=== PATIENT | male | born 1990 | race Caucasian/White ===

== ENCOUNTER 2025-07-08 11:08 | Outpatient (AMB) | payer MEDICAID, SELFPAY ==
--- OUTSIDE RECORDS SUMMARY | 2023-01-04 14:53 | XMS_ITS | Encounter Summary ---
Author Organization [facility] Address [address] [place] [id number] Phone Care Team Providers Care Medication Aide Name Role Phone Evie Enamorado NP Primary Care Provider [phone] Encounter Details Date Type Department Care Team (Late st Contact Info) Description 01/04/2023 3:53 PM EDT Hospital Encounter [facility] [address] [place] [address] Reyna Leigh FNP [address] [place] [id number] [email or web address] Social History Tobacco Use Types Packs/Day Years Used Date Smoking Tobacco: Every Day Cigarettes Smokeless Tobacco: Never Alcohol Use Standard Drinks/Week Comments Never 0 (1 standard drink = 0.6 oz pur e alcohol) Education Answer Date Recorded Are you interested in more education? Not on omar e 12/29/2022 Are you concerned about learning? Not on file 12/29/2022 No 12/29/2022 No 12/29/2022 Digital Access Answer Date Recorded No 01/29/2023 No 01/29/2023 Reliable internet access at home? Not on file 01/29/2023 Device with a working camera? Not on file Sex and Gender Information Value Date Recorded Sex Assigned at Not on file Legal Sex Male 12:18 PM EST Gender Identity Not on file Sexual Orientation Not on file documented as of this encounter Plan of Treatment Not on file documented as of this encounter Procedures Procedure Name Priority Date/Time Associated Diagnosis Comments XR FINGER 2 OR MORE VIEWS (RIGHT) Urgent/patient waiting 01/04/2023 3:56 PM EDT Contusion of right index finger with damage to nail, initial encounter documented in this encounter Results * XR FINGER 2 OR MORE VIEWS (RIGHT) (01/04/2023 3:56 PM EDT) Anatomical Region Laterality Modality Hand Right Computed Radiogr aphy 01/04/2023 4:01 PM EDT Impressions 01/04/2023 4:02 PM EDT No fracture or dislocation. Narrative 01/04/2023 4:02 PM EDT XR FINGER 2 OR MORE VIEWS (RIGHT) COMPARISON: None FINDINGS: No fracture. Normal alignment. Normal joint spaces. No radiodense foreign body. Procedure Note Jovana Gabriel MD - 01/04/2023 XR FINGER 2 OR MORE VIEWS (RIGHT) COMPARISON: None FINDINGS: No fracture. Normal alignment. Normal joint spaces. No radiodense foreignbody. IMPRESSION: No fracture or dislocation. Reyna Leigh MUSIC WRITER IMG XR UPPER EXTREMITY Tiffany l Result documented in this encounter Visit Diagnoses Not on filedocumented in this encounter Care Teams Medication Aide Relationship Specialty Start Date End Date Evie Enamorado NP PCP - General Nurse Practitioner 11/20/22 11/04/23 documented as of this encounter Additional Source Comments The information contained in this document represents components of the legal health record. It is not the complete legal health record.[facility]
[2025-07-08 11:14] VITALS: BP 120/70; PULSE 79; RESP 16; O2SAT 98; BMI 24.4
--- NOTE | 2025-07-08 11:14 | MHC.OFFVIS ---
Vital Signs 07/08/25 11:14 Height 6 ft Weight 180 lb BMI 24.4 BP 120/70 Blood Pressure Location Rt brachial Position Sitting Respiration 16 Pulse 79 Pulse Source Pulse Oximeter Pulse Oximetry (%) 98 Oxygen Delivery Method Room Air Intake Visit Reasons: ENP muscle twitching Sustainability Executive Director Required: No Allergies No Known Allergies Allergy (Verified 07/08/25 11:15) PFSH Medical History (Updated 07/08/25 @ 08:10 by Cisco Castillo CMA) Paresthesia of lower extremity Muscle twitching Social History (Updated 07/08/25 @ 11:17 by Cisco Castillo CMA) Alcohol intake: former Patient Tobacco Use Status: Current everyday Tobacco user Tobacco use type: Cigarette Cigarette Packs Per Day: 0.5 Cigarettes Per Day: 10 Physical Exam Vital Signs: Last Vital Signs Pulse 79 07/08/25 11:14 Resp 16 07/08/25 11:14 BP 120/70 07/08/25 11:14 Pulse Ox 98 07/08/25 11:14 Oxygen Delivery Method Room Air 07/08/25 11:14 BMI result Body Mass Index 24.4 Coding
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
--- OUTSIDE RECORDS SUMMARY | 2025-07-08 13:48 | XMS_ITS | Encounter Summary ---
Author Organization [employer] Address [address] [place] [address] Care Team Providers Care C Winforms Developer Name Role Phone Treva Jennings DO Primary Care Provider [phone] Encounter Details Date Type Department Care Team (Late st Contact Info) Description 11/08/2023 Orders Only [facility] [address] [place] [address] Treva Jennings DO [address] [place] [address] Social History Tobacco Use Types Packs/Day Years Used Date Smoking Tobacco: Every Day Cigarettes Passive Smoke Exposure: Current Smokeless Tobacco: Never Alcohol Use Standard Drinks/Week Comments Not Currently 0 (1 standard drink = 0.6 oz pur e alcohol) Alcohol Answer Date Recorded How often do you have a drink containing alcohol ? 0 08/19/2023 How many drinks containing a lcohol do you have on a typical day when you are drinking? 0 08/19/2023 How often do you have six or more drinks on one occasion? 0 08/19/2023 Housing Stability Answer Date Recorded What is your housing situation today? I have osbaldo maria 08/19/[address] you li ve. Do you have problems with any of the following? None of the above 08/19/2023 Food Insecurity Answer Date Recorded Within the past 12 months, y ou worried that your food would run out before you got money to buy more: Never True 08/19/2023 Within the past 12 months,th e food you bought just didn't last and you didn't have enough money to get more: Never True Transportation Answer Date Recorded In the past 12 months, has l ack of transportation kept you from medical appts, meetings, work or from getting things needed for daily living? No 08/19/2023 Intimate Partner Violence Answer Date R ecorded [...] shut off services in your home? No 08/19/2023 Depression Answer Date Recorded Patient Health Questionnaire-2 Score 0 08/19/2023 Sex and Gender Information Value Date Recorded Sex Assigned at Male 12/18/2022 2:37 PM EDT Legal Sex Male 8:35 PM EDT Gender Identity Male 12/18/2022 2:37 PM EDT Sexual Orientation Don't know 12/18/2022 2: 37 PM EDT documented as of this encounter Plan of Treatment Upcoming Encounters Date Type Department Care Team (Late st Contact Info) Description 07/27/2025 3:45 PM EST Office Visit [facility] [address] [place] [address] Treva Jennings DO [address] [place] [address] documented as of this encounter Procedures Procedure Name Priority Date/Time Associated Diagnosis Comments STOOL CULTURE Routine 11/05/2023 8:50 AM EST documented in this encounter Results * Stool culture (11/05/2023 8:50 AM EST) Stool Rectal contents / Unknown Treva Jennings DO LAB MICROBIOLOGY - GENERAL ORD ERABLES Final Result documented in this encounter Visit Diagnoses Not on filedocumented in this encounter Care Teams C Winforms Developer Relationship Specialty Start Date End Date Treva Jennings DO [address] [place] [address] PCP - General Family Medicine 08/16/23 documented as of this encounter
--- OUTSIDE RECORDS SUMMARY | 2025-07-08 13:48 | XMS_ITS | Clinical Summary ---
Author Organization [employer] Address [address] [facility] 7t [place] [address] Care Team Providers Care Production Supply Equipment Tender Name Role Phone Treva Jennings DO Primary Care Provider [phone] Allergies No known active allergies Medications acetaminophen (Tylenol) 500 MG tabletIndications :Pain Take 1,000 mg by mouth every 4 (four) hours if needed for mild pain. Active NON FORMULARY Sour-sop graviola Active NON FORMULARY Lion's monica Mushroom 1500 mg daily Active ASHWAGANDHA PO Take 100 mg by mouth Once per day. Active levothyroxine (Synthroid, Levoxyl) 50 MCG tabletIndications :Subclinical hypothyroidism Take 1 tablet (50 mcg) by mouth Once per day. 90 tablet 3 03/31/20 25 Active traMADol (Ultram) 50 MG tabletIndications :Chronic midline low back pain without sciatica Take 1 tablet (50 mg) by mouth if needed in the morning and at bedtime for moderate pain. 20 tablet 06/28/20 25 025 Active traMADol (Ultram) 50 MG tabletIndications :Chronic midline low back pain without sciatica Take 1 tablet (50 mg) by mouth if needed in the morning and at bedtime for moderate pain. 20 tablet 05/24/20 25 025 Discontinued(R eorder (will not trigger notification to Pharmacy)) Active Problems Problem Noted Date Diagnosed Date Smoker 05/12/2024 Assessment & Plan (05/12/2024 2:55 PM EDT): Weaning down cigarettes, declines nicotine replacement. 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 He notes that since this incident, he does not have much pain, but minor swelling as well as decreased strength with certain motions such as twisting a bottle cap. On physical exam, we were unable to reproduce these symptoms. There was no tenderness to palpation, strength was equal and appropriate bilaterally, sensation to touch was intact, and ROM was within normal limits. He states that he has not done anything for treatment as of yet, as he is not really having much pain, just diminished strength. Due to the nature of the injury and the patient's complaints, the differential diagnosis includes ligamentous sprain, ruptured ligament, or avulsion fracture d/t ligament rupture, but is difficult to determine without imaging or being able to reproduce symptoms. An x-ray of the right hand has been ordered for further diagnostic testing. The patient was advised that until we get imaging the best things he can do are heat/ice to help alleviate minor swelling and to rest his hand the best he can. Will contact patient with the results of the x-ray and decide further management at that time. Patient agreed to the plan and had no further questions at this time. Arthralgia 08/19/2023 Assessment & Plan (08/19/2023 11:03 AM EST): Likely d/t wear and tear, but given young age will check inflammatory markers to r/o autoimmune/autoinflammatory process. NSAIDs prn Diarrhea 08/19/2023 Assessment & Plan (08/19/2023 11:05 AM EST): Unclear etiology, brought up at end of visit. Given family history of celiac disease will screen for this, otherwise follow up for further evaluation Injury of right index finger 01/02/2023 Assessment & Plan (01/02/2023 10:49 AM EDT): Referred to urgent care. Needs urgent xray. Pt verbalizes understanding and agreeable to go to urgent care. Myalgia 12/27/2022 Overview (12/27/2022): History of chronic back pain, now having widespread joint pain without fever, recent illness, fatigue. Assessment & Plan (12/27/2022 5:57 PM EDT): Needs in clinic appointment to assess. Advised to take Ibuprofen 400-800mg TID with food PRN. Will likely do labs, including tick panel and DILCIA. Will assess further at in person visit. Subclinical hypothyroidism 12/24/2022 Overview (04/24/2024): Lab Results Component Value Date TSH 6.66 (H) 08/19/2023 Assessment & Plan (05/12/2024 2:55 PM EDT): TSH 6.6 in August, recheck thyroid function today Assessment & Plan (08/19/2023 11:04 AM EST): High TSH in 12/2022, pt did not take levothyroxine. Reports symptomatic improvement, though also notes weight gain over the past few months. Recheck thyroid levels Assessment & Plan (12/24/2022 5:40 PM EDT): FT4 WNL. Was on low dose Levothyroxine and ended up with TSH going too low. Discussed treatment options - will start lowest dose Levothyroxine instead of weight based dosing per pt preference. Will repeat TSH in 6 weeks. Reviewed medication, administration, and potential side effects. Chronic midline low back pain without sciatica 0 12/19/2022 Overview (08/04/2024): Images from the original note were not included. Assessment & Plan (05/12/2024 2:54 PM EDT): X ray in August 2023 was unremarkable Refer to sports medicine for ongoing management of back pain. Consider injections, manipulation. Continue using lumbar compression garment during exertion but otherwise no need to use if not helping Trial methocarbamol 500 mg tid prn Continue acetaminophen prn Assessment & Plan (12/13/2023 4:30 PM EDT): Refer back to physical therapy Trial tizanidine as needed particularly at night Assessment & Plan (08/19/2023 11:14 AM EST): XR ordered. Continue home stretches, consider referring back to PT Mood disorder 12/19/2022 Other chronic pain 12/19/2022 Resolved Problems Problem Noted Date Diagnosed Date Resolved Date Encounter to discuss test results 12/24/2022 12/05/2023 Assessment & Plan (12/24/2022 5:41 PM EDT): All lab results reviewed. Given time to ask questions and discuss health implications. Encounters Date Type Department Care Team Description 06/28/[address] [address] Treva Jennings DO Chronic midline low back pain without sciatica (Primary Dx) 06/28/[address] [address] Treva Jennings DO 05/24/[address] [address] Treva Jennings DO Med Refill 05/21/2025 10:15 AM EDT Office Visit [address] [address] Treva Jennings DO Muscle twitching (Primary Dx); Chronic midline low back pain without sciatica; Paresthesia of left lower extremity; Hypothyroidism, unspecified type; Poison danyelle dermatitis 05/17/[address] [address] Treva Jennings DO Tobacco use from Last 3 Months Immunizations Immunization Administration Dates Next Due DTaP 07/21/1997, 4,05/12/1993,03/10,01/06/1993 Hep B, Adolescent or Pediatric 08/11/1993,1992,1992 Hib (PRP-T) 04/04/1994, 3,03/10/1993,01/06 MMR 07/21/1997,04/04/1994 Meningococcal MCV4P ACYW-135 09/25/2006 OPV, Trivalent 07/21/1997, 4,03/10/1993,01/06 TD (adult), 2 Lf tetanus tox oid, preservative free, adsorbed 04/26/2015,05/26/2004 Tdap 04/26/2015,03/09/2013,02/07/2009 Family History Medical History Relation Name Comments Accidental Father Heart murmur Mother Graves' disease Mother's Sister Bipolar disorder Sister Relation Name Status Comments Father Mother Mother's Sister Sister Social History Tobacco Use Types Packs/Day Years Used Date Smoking Tobacco: Every Day Cigarettes Passive Smoke Exposure: Current Smokeless Tobacco: Never Tobacco Cessation:Ready to Q uit: Not Asked; Counseling Given: Not Answered Alcohol Use Standard Drinks/Week Comments Not Currently [...] file Not on file Not on file Last Filed Vital Signs Vital Sign Reading Time Taken Comments Blood Pressure 121/78 05/21/2025 10:21 AM EDT Pulse 74 05/21/2025 10:21 AM EDT Temperature 36.1 C (97 F) 05/21/2025 10:21 AM EDT Respiratory Rate 18 01/02/2023 10:20 AM EDT Oxygen Saturation 95% 05/21/2025 10:21 AM EDT Inhaled Oxygen Concentration - - Weight 77.1 kg (170 lb) 05/21/2025 10:21 AM EDT Height 182.9 cm (6') 05/21/2025 10:21 AM EDT Body Mass Index 23.06 05/21/2025 10:21 AM EDT Plan of Treatment Upcoming Encounters Date Type Department Care Team (Late st Contact Info) Description 07/27/2025 3:45 PM EST Office Visit Carlos [facility] [address] [place] [address] King TrevaDO [address] [place] [address] Health Maintenance Due Date Last Done Comments HPV Vaccines (1 - Male 3-dose series) 11/04/2007 Pneumococcal Vaccine: Pediatrics (0 to 5 Years) and At-Risk Patients (6 to 49) Years (1 of 2 - PCV) 11/04/2011 DTaP/Tdap/Td Vaccines (10 - Td or Tdap) 04/26/2025 04/26/2015, 04/26/2015, 03/09/2013, Additional history exists COVID-19 Vaccine ( - season) 2025 Influenza Vaccine (#1) 2025 Alcohol/Substance Use Screening 10/10/2025 10/10/2024 Depression Screening 10/10/2025 10/10/2024, 10/10/19 Disability Screening 10/10/2025 10/10/2024 Family Planning (PISQ) 10/10/2025 10/10/2024 SDOH Screening 10/10/2025 10/10/2024 Tobacco Screening 05/21/2026 05/21/2025 Lipid Panel 11/16/2029 11/16/2024 Zoster Vaccines (1 of 2) 2042 RSV Patients and Patients Aged 60 years or older (1 - 1-dose 75+ series) 11/04/2067 Hepatitis B Vaccines Completed 08/11/1993, 1992, 1992 HIB Vaccines Completed 04/04/1994, 05/03, 03/10/1993, Additional history exists IPV Vaccines Completed 07/21/1997, 08/02, 03/10/1993, Additional history exists Meningococcal Vaccine Aged Out 09/25/2006 No joselito madeline eligible based on patient's age to complete this topic HIV Screening Completed 12/19/2022 Hepatitis C Screening Completed 12/19/2022, 018 Hepatitis A Vaccines Aged Out No long er eligible based on patient's age to complete this topic Meningococcal B Vaccine Aged Out No l onger eligible based on patient's age to complete this topic RSV under 20 months Aged Out No longe r eligible based on patient's age to complete this topic Rotavirus Vaccines Aged Out No longer eligible based on patient's age to complete this topic Procedures Procedure Name Priority Date/Time Associated Diagnosis Comments LIPID PANEL, STANDARD Routine 11/16/2024 10:40 AM EDT Screening for ischemic heart disease HEPATITIS C VIRUS, RIBA Routine 12/19/2022 11:57 AM EDT HIV ANTIBODY/ANTIGEN, 4TH GENERATION Routine 12/19/2022 11:57 AM EDT from Last 3 Months or Most Recently Relevant to Health Maintenance Results * (ABNORMAL) Lipid Panel, Standard (11/16/2024 10:40 AM EDT) Cholesterol, Total 208(H) 100 - 199 mg/dL [facility] Triglycerides 259(H) 0 - 149 mg/dL [facility] 1 HDL Cholesterol 36(L) >39 mg/dL [facility] 1 VLDL Cholesterol Epi 46(H) 5 - 40 mg/dL [facility] 1 LDL Chol Calc (NIH) 126(H) 0 - 99 mg/dL [facility] 1 Blood Venous blood specimen / Unknown 11/16/2024 10:40 AM EDT 11/16/2024 Narrative [facility] 1 - 11/17/2024 8:05 AM EDT Performed at: 01 - [facility] [address] [id number] Mixer Runner: Karie Ghosh MD, Phone: [phone] Treva Jennings DO LAB BLOOD ORDERABLES Final Res ult [facility] * HIV Antibody/Antigen, 4th Generation (12/19/2022 11:57 AM EDT) Result 4th Gen HIV Antibody Antigen NEGATIVE (NEG) [facility] Comment: Negative for antibodies to HIV 1 and HIV 2 and P24 antigen. Reference range: Negative Additional note: Written patient authorization is required for each separate release of this test result. This test was performed on the [employer] Billing Clerk immunoassay system. Testing performed or reported by [facility], a Service of [facility], [facility] [address] Maximilian Banks MD, Fitter Type Bar And Segment [facility]# [id number] 12/19/2022 11:5 7 AM EDT 12/19/2022 11:59 AM EDT [facility] LAB BLOOD ORDERABLES Final Resul t Performing Organization Address City/[facility] Co de Phone Number [facility] [address] [place] [address] * Hepatitis C virus, RIBA (12/19/2022 11:57 AM EDT) Hepatitis C Virus Ab, Serum NEGATIVE (NEG) [facility] Comment: Reference range: Negative This test was performed on the [employer] Billing Clerk immunoassay system. Testing performed or reported by [facility], a Service of [facility], [facility] [place] [address] Maximilian Banks MD, Fitter Type Bar And Segment [facility]# [id number] 12/19/2022 11:5 7 AM EDT 12/19/2022 11:59 AM EDT [facility] LAB BLOOD ORDERABLES Final Resul t Performing Organization Address City/[facility]/ZIP Co de Phone Number [facility] [address] [place] [phone] from Last 3 Months or Most Recently Relevant to Health Maintenance Insurance [facility] C3 Care Teams Production Supply Equipment Tender Relationship Specialty Start Date End Date Treva Jennings DO [address] [place] [id number] PCP - General Family Medicine 08/16/23
--- OUTSIDE RECORDS SUMMARY | 2025-07-08 13:48 | XMS_ITS | Encounter Summary ---
Author Organization [employer] Address [address] [facility] [address] [place] [address] Care Team Providers Care Machine Heel Builder Name Role Phone Treva Jennings DO Primary Care Provider [phone] Reason for Visit * Reason Onset Date Comments Med Refill 06/28/2025 Encounter Details Date Type Department Care Team ([facility] st Contact Info) Description 06/28/2025 Refill Carlos [facility] [address] [place] [address] Treva Jennings DO [address] [place] [address] Social History Tobacco Use Types Packs/Day Years [...] 07/27/2025 3:45 PM EST Office Visit Carlos [facility] [address] [place] [address] Treva Jennings DO [address] [place] [address] documented as of this encounter Visit Diagnoses Not on filedocumented in this encounter Care Teams Machine Heel Builder Relationship Specialty Start Date End Date Treva Jennings DO [address] [place] [address] PCP - General Family Medicine 08/16/23 documented as of this encounter
--- OUTSIDE RECORDS SUMMARY | 2025-07-08 13:48 | XMS_ITS | Encounter Summary ---
Author Organization [facility] Address [address] [place] [phone] Phone Care Team Providers Care Fibre Optic Cable Splicer Name Role Phone Evie Enamorado EARLY CHILDHOOD ASSOCIATE TEACHER Primary Care Provider Evie Enamorado EARLY CHILDHOOD ASSOCIATE TEACHER Primary Care Provider [phone] Encounter Details Date Type Department Care Team (Latest Contact Info) Description 09/24/2023 Transcribe Orders [facility] [place] [address] [place] [address] Wendy Che PA-C [address], [address] [place] [address] [email or web address] Diarrhea, unspecified type (Primary Dx); Upper abdominal pain Social History Tobacco Use Types Packs/Day Years [...] on file documented as of this encounter Results * Stool fat/fiber exam (11/05/2023 7:30 AM EST) FATTY ACID NORMAL NORMAL [facility] Neutral Fat, stool NORMAL NORMAL [facility] Stool (Stool) 11/05/2023 7:3 0 AM EST 11/05/2023 3:24 PM EST Wendy Che PA-C BODY FLUIDS AND STOOLS ORDERABL ES Final Result Performing Organization Address City/[facility]/ZIP Co de Phone Number [address] [address] * Giardia and cryptosporidium screen (11/05/2023 7:30 AM EST) GIARDIA AG Negative Negative [facility] Cryptosporidiu m, stool Negative Negative [facility] Stool (Stool) 11/05/2023 7:3 0 AM EST 11/05/2023 3:23 PM EST Wendy Che PA-C NON CULTURE MICROBIOLOGY Final Result Performing Organization Address City/[facility]/ZIP Co de Phone Number [address] [address] * (ABNORMAL) Calprotectin, stool (11/05/2023 7:30 AM EST) STOOL CALPROTECTIN 196(H) mcg/g [facility] Comment: (NOTE) Reference Range: <50 Normal 50-120 Borderline >120 Elevated Calprotectin in Crohn's disease and ulcerative colitis can be five to several thousand times above the reference population (50 mcg/g or less). Levels are usually 50 mcg/g or less in healthy patients and with irritable bowel syndrome. Repeat testing in 4-6 weeks is suggested for borderline values. Stool (Stool) 11/05/2023 7:3 0 AM EST 11/05/2023 3:24 PM EST us Wendy Che PA-C LAB BODY FLUIDS AND STOOL ORDER JUAN A Final Result [facility] [address] [place] [address], [place] [phone] * Stool culture (11/05/2023 7:30 AM EST) Special Requests None 11/05/2023 3:15 PM EST [facility] Stool Culture NO SALMONELLA, SHIGELLA OR CAMPYLOBACTER ISOLATED 11/07/2023 8:13 AM EST [facility] Stool (Stool) 11/05/2023 7:3 0 AM EST 11/05/2023 3:23 PM EST us Wendy Che PA-C LAB MICROBIOLOGY CULTURE ORDERA BLES Final Result Performing Organization Address City/[facility]/ZIP Co de Phone Number [address] [address] * C. DIFFICILE PCR (11/05/2023 7:30 AM EST) C.DIFFICILE PCR Negative Negative [facility] C.DIFFICILE STRAIN PRESUMPTIVE NEGATIVE PRESUMPTIVE NEGATIVE [facility] Comment:Detection of 027/NAP 1/BI strains of C.difficile is presumptive and is solely for epidemiological purposes and is not intended to guide or monitor treatment of infections. Stool (Stool) 11/05/2023 7:3 0 AM EST 11/05/2023 3:23 PM EST us Wendy Che PA-C LAB BODY FLUIDS AND STOOL ORDER JUAN A Final Result [address] [address] * H. pylori stool PCR with resistance prediction (2023 11:00 PM EST) Specimen Source STOOL [facility] DPT OF LAB MED AND PAT+ Helicobacter pylori Result Not Detected Not Detected [facility] MED AND PAT+ Comment: (NOTE) ADDITIONAL INFORMATION This test was developed and its performance characteristics determined by [facility] in a manner consistent with CLIA requirements. This test has not been cleared or approved by the U.S. Food and Drug Administration. Clarithromycin Resistance Result Test component not applicable or not reported. [facility] DPT OF LAB MED AND PAT+ Stool (Stool) 2023 11: 00 PM EST 11/05/2023 3:21 PM EST Wendy Che PA-C BODY FLUIDS AND STOOLS ORDERABL ES Final Result Performing Organization Address [facility] de Phone Number [facility] DPT OF LAB MED AND PAT+ [address] [place] [address] * Ova and parasites, stool (2023 7:00 AM EST) Parasitic exam FINAL 4 0841 [facility] DPT OF LAB MED AND PAT+ Comment: (NOTE) SOURCE: STOOL, STLP OVA AND PARASITE, MICROSCOPY, F FINAL No parasites seen. Cryptosporidium, Cyclospora, and microsporidia are not readily detected by this method. Single negative specimen does not rule out parasitic infection. Stool (Stool) 2023 7:0 0 AM EST 11/05/2023 3:22 PM EST Wendy Che PA-C LAB BODY FLUIDS AND STOOL ORDER JUAN A Final Result Performing Organization Address [facility] Co de Phone Number [facility] DPT OF LAB MED AND PAT+ [address] [place] [address] * Ova and parasites, stool (11/01/2023 10:00 AM EST) Parasitic exam FINAL 4 1159 [facility] DPT OF LAB MED AND PAT+ Comment: (NOTE) SOURCE: STOOL, STLP OVA AND PARASITE, MICROSCOPY, F FINAL No parasites seen. Cryptosporidium, Cyclospora, and microsporidia are not readily detected by this method. Single negative specimen does not rule out parasitic infection. Stool (Stool) 11/01/2023 10: 00 AM EST 11/05/2023 3:21 PM EST Wendy Che PA-C LAB BODY FLUIDS AND STOOL ORDER JUAN A Final Result Performing Organization Address [facility] de Phone Number [facility] DPT OF LAB MED AND PAT+ [address] [place] [address] * Ova and parasites, stool (10/31/2023 9:00 PM EST) Parasitic exam FINAL 4 1123 [facility] DPT OF LAB MED AND PAT+ Comment: (NOTE) SOURCE: STOOL, STLP OVA AND PARASITE, MICROSCOPY, F FINAL No parasites seen. Cryptosporidium, Cyclospora, and microsporidia are not readily detected by this method. Single negative specimen does not rule out parasitic infection. Stool (Stool) 10/31/2023 9:0 0 PM EST 11/05/2023 3:20 PM EST Wendy Che PA-C LAB BODY FLUIDS AND STOOL ORDER JUAN A Final Result Performing Organization Address [facility] de Phone Number [facility]PT OF LAB MED AND PAT+ [address] [place] [address] documented in this encounter Visit Diagnoses Diagnosis Diarrhea, unspecified type- Primary Upper abdominal pain documented in this encounter Care Teams Fibre Optic Cable Splicer Relationship Specialty Start Date End Date Evie Enamorado NP PCP - General Nurse Practitioner 11/20/22 11/04/23 Evie Enamorado NP PCP - General Nurse Practitioner 11/05/23 documented as of this encounter Additional Source Comments The information contained in this document represents components of the legal health record. It is not the complete legal health record.[facility]
--- OUTSIDE RECORDS SUMMARY | 2025-07-08 13:48 | XMS_ITS | Encounter Summary ---
Author Organization [employer] Address [address] [facility] [address] [facility] [address] [place] [address] Care Team Providers Care Fabricator Foam Rubber Name Role Phone Treva Jennings DO Primary Care Provider [phone] Encounter Details Date Type Department Care Team (Late st Contact Info) Description 11/11/2023 Orders Only [facility] [address] [place] [address] Treva Jennings DO [address] [place] [address] Social History Tobacco Use Types Packs/Day Years [...] Description 07/27/2025 3:45 PM EST Office Visit [facility] [address] [place] [address] Treva Jennings DO [address] [place] [address] documented as of this encounter Procedures Procedure Name Priority Date/Time Associated Diagnosis Comments HELICOBACTER PYLORI CULTURE Routine 2023 1:58 PM EST documented in this encounter Results * HELICOBACTER PYLORI CULTURE (2023 1:58 PM EST) Treva Jennings DO LAB BLOOD ORDERABLES Final Res ult documented in this encounter Visit Diagnoses Not on filedocumented in this encounter Care Teams Fabricator Foam Rubber Relationship Specialty Start Date End Date Treva Jennings DO [address] [place] [address] PCP - General Family Medicine 08/16/23 documented as of this encounter
--- OUTSIDE RECORDS SUMMARY | 2025-07-08 13:48 | XMS_ITS | Encounter Summary ---
Author Organization [employer] Address [address] [facility] [address] [place] [address] Care Team Providers Care Paper Tube Machine Operator Name Role Phone Treva Jennings DO Primary Care Provider [phone] Encounter Details Date Type Department Care Team (Late st Contact Info) Description 03/01/2025 Patient Outreach [facility] Case Management [address] [place] [address] Alicia Quinn Social History Tobacco Use Types Packs/Day Years [...] is your housing situation today? I have osbaldocarmita maria 10/10/[address] you [...] 07/27/2025 3:45 PM EST Office Visit [facility] [address] [place] [address] Treva Jennings DO [address] [place] [address] documented as of this encounter Visit Diagnoses Not on filedocumented in this encounter Care Teams Paper Tube Machine Operator Relationship Specialty Start Date End Date Treva Jennings DO [address] [place] [address] PCP - General Family Medicine 08/16/23 documented as of this encounter
--- OUTSIDE RECORDS SUMMARY | 2025-07-08 13:48 | XMS_ITS | Encounter Summary ---
Author Organization [employer] Address [address] [place] [address] Care Team Providers Care Radiation Control Specialist Name Role Phone Treva Jennings DO Primary Care Provider [phone] Encounter Details Date Type Department Care Team (Late st Contact Info) Description 11/06/2023 Orders Only [facility] [address] [place] [address] Treva Jennings DO [address] [place] [address] Social History Tobacco Use Types Packs/Day Years [...] your housing situation today? I have osbaldo amria 08/19/[address] you li [...] Description 07/27/2025 3:45 PM EST Office Visit [facility] MED[facility] [address] [place] [address] Treva Jennings DO [address] [place] [address] documented as of this encounter Procedures Procedure Name Priority Date/Time Associated Diagnosis Comments GIARDIA / CRYPTOSPORIDIUM ANTIGENS, DFA Routine 11/05/2023 3:22 PM EST FECAL FAT, QUALITATIVE Routine 1:03 PM EST C DIFF TOXIGENIC DNA Routine 11/05/2023 9:16 AM EST documented in this encounter Results * Giardia / Cryptosporidium antigens, DFA (11/05/2023 3:22 PM EST) Stool Rectal contents / Unknown Treva Jennings DO LAB BODY FLUIDS AND STOOLS ORD ERABLES Final Result * Fecal Fat, Qualitative (11/05/2023 1:03 PM EST) Stool Rectal contents / Unknown Evie Cuellarboris [facility] LAB BLOOD ORDERABLES Final Resul t * C Difficile Toxigenic DNA (11/05/2023 9:16 AM EST) Stool us Treva Jennings DO LAB BODY FLUIDS AND STOOLS ORD ERABLES Final Result documented in this encounter Visit Diagnoses Not on filedocumented in this encounter Care Teams Radiation Control Specialist Relationship Specialty Start Date End Date Treva Jennings DO [address] [place] [id number] PCP - General Family Medicine 08/16/23 documented as of this encounter
--- OUTSIDE RECORDS SUMMARY | 2025-07-08 13:49 | XMS_ITS | Clinical Summary ---
Author Organization [facility] Address [address] [place] [id number] Phone Care Team Providers Care Screen Door Maker Name Role Phone Evie Enamorado NP Primary Care Provider [phone] Allergies Active Allergy Reactions Criticality Noted Date Comments Tuna Oil 08/22/2021 Medications levothyroxine (SYNTHROID,LEVO THROID) 25 MCG tablet TAKE 1 TABLET (25 MCG) BY MOUTH BEFORE BREAKFAST 3 Active ibuprofen (ADVIL,MOTRIN) 800 MG tablet Take 1 tablet (800 mg total) by mouth 3 (three) times a day for 3 days. then tid prn. 30 tablet 3 Active Active Problems No known active problems Immunizations Immunization Administration Dates Next Due DTaP 07/21/1997, 4,05/12/1993,03/10,01/06/1993 Hepatitis B 08/11/1993,1992,1992 Hib,PRP-T 04/04/1994, 3,03/10/1993,01/06 MMR 07/21/1997,04/04/1994 Meningococcal MCV4P 09/25/2006 Polio - OPV 07/21/1997, 4,03/10/1993,01/06 Td (adult),2 Lf Tetanus Toxo id, PF, Adsorbed 05/26/2004 Tdap 02/07/2009 Social History Tobacco Use Types Packs/Day Years Used Date Smoking Tobacco: Every Day Cigarettes Smokeless Tobacco: Never Tobacco Cessation:Ready to Q uit: Not Asked; Counseling Given: Not Answered Alcohol Use Standard Drinks/Week Comments Never 0 [...] on file Sexual Orientation Not on file Last Filed Vital Signs Vital Sign Reading Time Taken Comments Blood Pressure 127/87 01/04/2023 3:35 PM EDT Pulse 95 01/04/2023 3:35 PM EDT Temperature 36.9 C (98.4 F) 01/04/2023 3:35 PM EDT Respiratory Rate 18 01/04/2023 3:35 PM EDT Oxygen Saturation 97% 01/04/2023 3:35 PM EDT Inhaled Oxygen Concentration - - Weight 83.9 kg (185 lb) 01/04/2023 3:35 PM EDT Height 180.3 cm (5' 11 ) 01/04/2023 3:35 PM EDT Body Mass Index 25.8 01/04/2023 3:35 PM EDT Plan of Treatment Health Maintenance Due Date Last Done Comments TSH LEVEL 1992 DEPRESSION SCREENING 2004 SMOKING Hx and SMOKELESS TOBACCO SCREENING 2005 HIV ONE-TIME SCREENING (18-65 YEARS) 2010 PNEUMOCOCCAL VACCINES (0-49 years) (1 of 2 - PCV) 11/04/2011 Adult Td,Tdap Booster 02/07/2019 02/07/2009, 004 INFLUENZA VACCINE (#1) 2025 COVID-19 VACCINE (1 - 2024- season) 2025 HIB VACCINES Completed 04/04/1994, 05/03, 03/10/1993, Additional history exists MENINGOCOCCAL VACCINES (ACWY) Aged Out 09/25/2006 No longer eligible based on patient's age to complete this topic HEPATITIS C SCREENING Completed 03/18/2018 HEPATITIS A VACCINES Aged Out No long er eligible based on patient's age to complete this topic MENINGOCOCCAL VACCINES (B) Aged Out N o longer eligible based on patient's age to complete this topic Medical Devices Not on file Care Teams Screen Door Maker Relationship Specialty Start Date End Date Evie Enamorado NP PCP - General Nurse Practitioner 11/05/23 Additional Source Comments The information contained in this document represents components of the legal health record. It is not the complete legal health record.[facility]
== END 2025-07-08 11:58 | disposition home or self-care (01) ==
PROVIDERS: PCP Family Medicine; Visit Provider Psychiatry & Neurology Neurology
DX: R25.3 Fasciculation (principal); M54.50 Low back pain, unspecified; R20.2 Paresthesia of skin
CPT/HCPCS: 99204

== ENCOUNTER → 2025-07-08 11:08 | Outpatient (BNVA) | payer MEDICAID, SELFPAY | PROVIDERS: PCP Family Medicine; Visit Provider Psychiatry & Neurology Neurology | DX: M54.50 Low back pain, unspecified (principal); R20.2 Paresthesia of skin; R25.3 Fasciculation | CPT/HCPCS: 99202 ==

== ENCOUNTER 2025-07-20 15:26 | Outpatient (REF) | payer MEDICAID, SELFPAY ==
--- NOTE | 2025-07-20 15:30 | EMG_ITS ---
Chief complaint:?Fasciculation, pain, numbness and low back pain Reason for referral: R25.3 Fasciculation Referred by:?Kaia Rivers NP Procedure done: Right lower extremity NCS/EMG Right tibial and peroneal motor studies were performed with F responses and tibial H-reflex. Right superficial peroneal, sural, and median lateral mixed plantars sensory studies were performed and needle examination was performed. Impression: This study revealed normal nerve conduction study in no findings on needle examination. No significant abnormality noted. [place] [id number] 1 extremity ? MTDD
== END 2025-07-20 15:27 | disposition home or self-care (01) ==
LOC: HO.NEURO 15:26
PROVIDERS: PCP Family Medicine; Visit Provider Nurse Practitioner
DX: R25.3 Fasciculation (principal); M54.50 Low back pain, unspecified; R20.2 Paresthesia of skin; R20.0 Anesthesia of skin
CPT/HCPCS: 95886; 95910

== ENCOUNTER → 2025-07-20 15:30 | Outpatient (BNV) | payer MEDICAID, SELFPAY | PROVIDERS: PCP Family Medicine; Visit Provider Psychiatry & Neurology Neurology | DX: R25.3 Fasciculation (principal) | CPT/HCPCS: 95886; 95910 ==